=== PATIENT | female | born 1940 | race Caucasian/White ===

== ENCOUNTER 2019-09-19 11:29 | Outpatient (CLI) | payer MEDICARE ==
--- NOTE | 2019-09-19 16:51 | DEXA Report ---
Reason: MENOPAUSAL Procedure Date: 09/19/2019 Accession Number: [id number] / [id number] Procedure: DEX - Dexa Spine and/or Hip CPT Code: Final Report FULL RESULT: EXAM: Dexa Spine and/or Hip, Dexa Forearm DATE: 09/19/2019 12:11 PM CLINICAL HISTORY: The patient is an 79-year-old postmenopausal female. TECHNIQUE: Dual energy x-ray absorptiometry (DXA) was performed on a [employer] System. Regions measured are the AP Spine, femoral neck, and if needed forearm. COMPARISON: None. In accordance with the International Society for Clinical Densitometry (ISCD) guidelines, data from previous exams may be reanalyzed using current recommendations and techniques. This is done to allow a more accurate basis for comparison with the current study. FINDINGS: The data for the lumbar spine is as follows: BMD (g/cm/cm) T-SCORE Z-SCORE REGION L1 0.804 -2.7 -0.4 L2 1.039 -1.3 0.9 L3 1.292 0.8 3.0 L4 1.247 0.4 2.7 TOTAL 1.108 -1.0 1.3 NOTE: All evaluable vertebrae are used for classification The data for the hip is as follows: BMD (g/cm/cm) T-SCORE Z-SCORE REGION Neck 0.665 -2.7 -0.3 TOTAL 0.643 -2.9 -0.6 NOTE: The femoral neck or total proximal femur, whichever is lowest, is used for classification. The data for the left forearm is as follows: BMD (g/cm/cm) T-SCORE Z-SCORE REGION 1/3 0.409 -5.3 -2.8 NOTE: The 33% radius of the nondominant forearm is used for classification. IMPRESSION: THE WHO CLASSIFICATION BASED ON THE INTERNATIONAL REFERENCE STANDARD IS OSTEOPOROSIS. THE FRACTURE RISK IS HIGH. RECOMMENDATION: Patients with diagnosis of osteoporosis or osteopenia should have regular bone mineral density assessment. For those eligible for Medicare, routine testing is allowed once every 2 years. Testing frequency can be increased for patients who have rapidly progressing disease or for those who are receiving medical therapy to restore bone mass. COMMENT: World Health Organization (WHO) definitions for osteoporosis and osteopenia: NORMAL BMD: T-score at -1.0 or higher, fracture risk is low OSTEOPENIA BMD: T-score between -1.0 and -2.5, fracture risk is increased. OSTEOPOROSIS BMD: T-score at -2.5 or lower, fracture risk is high. National Osteoporosis Foundation recommends: 1. Obtain adequate dietary calcium (at least 1200 mg per day) and vitamin D (400-800 international units per day). 2. Participate, as appropriate, in regular weightbearing and muscle-strengthening exercise. 3. Avoid tobacco use and reduce alcohol and caffeine intake. 4. For more detailed information see the website at www.NOF.org.
== END 2019-09-19 11:30 | disposition home or self-care (01) ==
LOC: DI 11:29
PROVIDERS: ATTEND Registered Nurse
DX: M81.0 Age-related osteoporosis without current pathological fracture (principal)
CPT/HCPCS: 77080; 77081

== ENCOUNTER 2019-11-09 09:34 | Outpatient (CLI) | payer MEDICARE ==
[2019-11-09 18:26] LABS: BASOPHILS # (AUTO) 0.1 10^3/uL (0.0-0.1); EOSINOPHILS % (AUTO) 0.8 %; LYMPHOCYTES # (AUTO) 1.1 10^3/uL (1.5-3.5); MEAN CORPUSCULAR HEMOGLOBIN 32.8 pg (27.0-31.0); MEAN CORPUSCULAR HGB CONC 32.9 g/dL (32.0-36.0); MEAN CORPUSCULAR VOLUME 99.7 fL (81.0-99.0); MEAN PLATELET VOLUME 12.4 fL (7.9-10.8); MONOCYTES # (AUTO) 0.3 10^3/uL (0.0-1.0); MONOCYTES % (AUTO) 9.3 %; NEUTROPHILS % (AUTO) 57.9 %; PLT - PLATELET COUNT 178 10^3/uL (130-450); RED BLOOD COUNT 3.96 10^6/uL (4.20-5.40); RED CELL DISTRIBUTION WIDTH 13.2 % (12.0-15.0); WHITE BLOOD COUNT 3.5 x10^3/uL (4.8-10.8)
[2019-11-09 18:34] LABS: CALCIUM 9.4 mg/dL (8.5-10.3); CREATININE 0.6 mg/dL (0.4-1.0)
== END 2019-11-09 09:35 | disposition home or self-care (01) ==
LOC: LAB.S 09:34
PROVIDERS: ATTEND Registered Nurse
DX: K57.92 Diverticulitis of intestine, part unspecified, without perforation or abscess without bleeding (principal)
CPT/HCPCS: 36415; 80048; 85025; 85651

== ENCOUNTER 2019-12-13 12:23 | Outpatient (CLI) | payer MEDICARE ==
[2019-12-13 17:38] LABS: URIC ACID 4.1 mg/dL (2.6-7.2)
== END 2019-12-13 12:24 | disposition home or self-care (01) ==
LOC: LAB.S 12:23
PROVIDERS: ATTEND Registered Nurse
DX: M13.879 Other specified arthritis, unspecified ankle and foot (principal)
CPT/HCPCS: 36415; 83970; 84075; 84443; 84550

== ENCOUNTER 2020-04-01 10:30 | Outpatient (CLI) | payer MEDICARE | END 2020-04-01 23:59 | disposition home or self-care (01) | LOC: LAB.R 10:30 | PROVIDERS: ATTEND Registered Nurse | DX: N39.0 Urinary tract infection, site not specified (principal) | CPT/HCPCS: 87077; 87086; 87181 ==

== ENCOUNTER 2020-04-15 08:00 | Outpatient (CLI) | payer MEDICARE | END 2020-04-15 23:59 | LOC: LAB.S 08:00 | PROVIDERS: ATTEND Family Medicine | DX: R30.0 Dysuria (principal) | CPT/HCPCS: 81002 ==

== ENCOUNTER 2020-05-01 15:52 | Outpatient (CLI) | payer MEDICARE ==
--- NOTE | 2020-05-01 22:48 | Ultrasound Report ---
PROCEDURE: Retroperitoneal INDICATIONS: DYSURIA urinary frequency TECHNIQUE: Real-time scanning was performed of the retroperitoneal organs, with image documentation. COMPARISON: None. FINDINGS: Kidneys: Kidneys are normal in size. Right kidney measures 10.7 cm long; left kidney measures 11.4 cm long. Right renal cortical thickness is 0.9 cm; left renal cortical thickness is 1.5 cm. No ivonne d masses, hydronephrosis, or nephrolithiasis. There are 2 partially exophytic cyst arising in the mi d and upper pole of the right kidney. The larger measures 3.7 x 3.2 x 4.1 cm. The smaller measures 2. 7 x 1.7 x 2.2 cm. Both cysts demonstrate thin davies, no internal complexity, or color Doppler flow. Urinary bladder: The prevoid urinary bladder has a volume of 393 cc. Bilateral ureteral jets were vis ible. The bladder wall is not significantly thickened. No visible bladder mass or debris. The post vo id bladder residual is 141 cc. IMPRESSION: 1. Simple right renal cysts measuring 4.1 and 2.7 cm. 2. Large postvoid residual of 141 cc. 3. No evidence of hydronephrosis Reviewed by: Vida Johnston MD on 05/01/2020 10:47 PM PDT Approved by: Vida Johnston MD on 05/01/2020 10:47 PM PDT Station ID: [id number]
== END 2020-05-01 15:53 | disposition home or self-care (01) ==
LOC: DI 15:52
PROVIDERS: ATTEND Family Medicine
DX: Q61.02 Congenital multiple renal cysts (principal)
CPT/HCPCS: 76770

== ENCOUNTER 2020-05-08 08:00 | Outpatient (CLI) | payer MEDICARE | END 2020-05-08 08:01 | disposition home or self-care (01) | LOC: LAB.R 08:00 | PROVIDERS: ATTEND Family Medicine | DX: R33.9 Retention of urine, unspecified (principal); R35.0 Frequency of micturition | CPT/HCPCS: 87086 ==

== ENCOUNTER 2020-09-04 12:00 | Outpatient (CLI) | payer MEDICARE | END 2020-09-04 23:59 | disposition home or self-care (01) | LOC: LAB.R 12:00 | PROVIDERS: ATTEND Physician Assistant Medical | DX: N39.0 Urinary tract infection, site not specified (principal) | CPT/HCPCS: 87077; 87086; 87181 ==

== ENCOUNTER 2020-10-06 08:00 | Outpatient (CLI) | payer MEDICARE ==
--- NOTE | 2020-10-06 16:36 | XRAY Report ---
PROCEDURE: Ribs w/PA Chest LT INDICATIONS: RIB PAIN, LEFT SIDED TECHNIQUE: 2 views of the left ribs were acquired, along with a single view chest. COMPARISON: None FINDINGS: Surgical changes and devices: None. Bones and chest wall: No fractures or dislocations. No suspicious bony lesions. Overlying soft tis sues appear unremarkable. Lungs and pleura: No pleural effusions or pneumothorax. Lungs appear clear. Mediastinum: Mediastinal contours appear normal. Heart size is normal. IMPRESSION: No gross displaced left rib fracture. No acute cardiopulmonary pathology. Reviewed by: Orlando Mcdaniel MD on 10/06/2020 4:34 PM PST Approved by: Orlando Mcdaniel MD on 10/06/2020 4:34 PM PST Station ID: [id number]
== END 2020-10-06 23:59 ==
LOC: DI.S 08:00
PROVIDERS: ATTEND Physician Assistant
DX: R07.81 Pleurodynia (principal)

== ENCOUNTER 2020-12-19 08:00 | Outpatient (CLI) | payer MEDICARE | END 2020-12-19 23:59 | disposition home or self-care (01) | LOC: LAB.S 08:00 | PROVIDERS: ATTEND Physician Assistant Medical | DX: R35.0 Frequency of micturition (principal) | CPT/HCPCS: 87086 ==

== ENCOUNTER 2021-03-06 08:00 | Outpatient (CLI) | payer MEDICARE | END 2021-03-06 23:59 | disposition home or self-care (01) | LOC: LAB.S 08:00 | PROVIDERS: ATTEND Physician Assistant | DX: N39.0 Urinary tract infection, site not specified (principal) | CPT/HCPCS: 87077; 87086; 87181 ==

== ENCOUNTER 2021-04-21 08:00 | Outpatient (CLI) | payer MEDICARE | END 2021-04-21 23:59 | disposition home or self-care (01) | LOC: LAB.S 08:00 | PROVIDERS: ATTEND Physician Assistant | DX: N39.0 Urinary tract infection, site not specified (principal) | CPT/HCPCS: 87077; 87086; 87181 ==

== ENCOUNTER 2021-06-17 15:15 | Outpatient (CLI) | payer MEDICARE ==
[2021-06-17 20:07] LABS: BILIRUBIN,URINE NEGATIVE (NEGATIVE); GLUCOSE, URINE (UA) NEGATIVE (NEGATIVE); KETONES,URINE (UA) NEGATIVE (NEGATIVE); LEUKOCYTE ESTERASE, URINE SMALL (NEGATIVE); NITRITE,URINE NEGATIVE (NEGATIVE); OCCULT BLOOD,URINE NEGATIVE (NEGATIVE); PH,URINE 7.5 PH (5.0-7.5); PROTEIN,URINE NEGATIVE (NEGATIVE); UROBILINOGEN,URINE 0.2 (NORMAL) E.U./dL (NORMAL)
[2021-06-17 20:18] LABS: BACTERIA,URINE Rare /HPF (None Seen); CLARITY,URINE CLEAR (CLEAR); RBC,URINE 0-5 /HPF (0-5); SQUAMOUS EPITHELIAL CELL,UR FEW Squamous (<= Few); WBC,URINE 0-3 /HPF (0-5)
== END 2021-06-17 15:16 | disposition home or self-care (01) ==
LOC: LAB.S 15:15
PROVIDERS: ATTEND Urology
DX: R39.9 Unspecified symptoms and signs involving the genitourinary system (principal)
CPT/HCPCS: 81001; 81003; 87077; 87086; 87181

== ENCOUNTER 2021-07-05 12:40 | Outpatient (CLI) | payer MEDICARE ==
[2021-07-05 20:03] LABS: BILIRUBIN,URINE NEGATIVE (NEGATIVE); GLUCOSE, URINE (UA) NEGATIVE (NEGATIVE); KETONES,URINE (UA) NEGATIVE (NEGATIVE); LEUKOCYTE ESTERASE, URINE SMALL (NEGATIVE); NITRITE,URINE NEGATIVE (NEGATIVE); OCCULT BLOOD,URINE NEGATIVE (NEGATIVE); PROTEIN,URINE NEGATIVE (NEGATIVE); UROBILINOGEN,URINE 0.2 (NORMAL) E.U./dL (NORMAL)
[2021-07-05 20:06] LABS: CLARITY,URINE CLEAR (CLEAR)
[2021-07-05 20:25] LABS: BACTERIA,URINE Moderate /HPF (None Seen); RBC,URINE 0-5 /HPF (0-5); SQUAMOUS EPITHELIAL CELL,UR NONE SEEN (<= Few)
== END 2021-07-05 23:59 | disposition home or self-care (01) ==
LOC: LAB.S 12:40
PROVIDERS: ATTEND Emergency Medicine
DX: R30.0 Dysuria (principal)
CPT/HCPCS: 81001; 87077; 87086

== ENCOUNTER 2021-07-27 10:10 | Outpatient (CLI) | payer MEDICARE | END 2021-07-27 23:59 | disposition home or self-care (01) | LOC: LAB.S 10:10 | PROVIDERS: ATTEND Physician Assistant Medical | DX: R30.0 Dysuria (principal) | CPT/HCPCS: 87086 ==

== ENCOUNTER 2021-09-04 13:02 | Outpatient (CLI) | payer MEDICARE ==
--- NOTE | 2021-09-04 16:45 | Ultrasound Report ---
PROCEDURE: Retroperitoneal INDICATIONS: VAGINAL DISCOMFORT, HIST RECURRENT UTIS TECHNIQUE: Real-time scanning was performed of the retroperitoneal organs, with image documentation. COMPARISON: None. FINDINGS: Kidneys: Kidneys are normal in size. Right kidney measures 10.4 cm long; left kidney measures 11.4 cm long. Right renal cortical thickness is 1.1 cm; left renal cortical thickness is 1.4 cm. No ivonne d masses, hydronephrosis, or nephrolithiasis. Prevoid urinary bladder volume: 187 cc. Post void residual: 39 cc. IMPRESSION: No hydronephrosis. Reviewed by: Sona Salinas MD on 09/04/2021 4:44 PM PST Approved by: Sona Salinas MD on 09/04/2021 4:44 PM PST Station ID: [id number]
--- NOTE | 2021-09-04 16:53 | Ultrasound Report ---
PROCEDURE: Pelvic w/Transvaginal INDICATIONS: VAGINAL DISCOMFORT, HIST RECURRENT UTIs TECHNIQUE: Real-time scanning was performed of the pelvic organs, with image documentation. Additional endovagi nal scanning was necessary due to incomplete visualization of the adnexal and endometrial structures by transabdominal scanning. COMPARISON: Same day renal ultrasound. FINDINGS: No pathologic free abdominal or pelvic fluid. Uterus: Surgically absent. Vaginal cuff is unremarkable. Ovaries: Ovaries are not seen. IMPRESSION: Post hysterectomy. Ovaries are not seen. No free fluid. Reviewed by: Jose Eduardo Collier MD on 09/04/2021 4:51 PM PST Approved by: Jose Eduardo Collier MD on 09/04/2021 4:51 PM PST Station ID: [id number]
== END 2021-09-04 13:03 | disposition home or self-care (01) ==
LOC: DI 13:02
PROVIDERS: ATTEND Physician Assistant Medical
DX: N94.9 Unspecified condition associated with female genital organs and menstrual cycle (principal); Z90.710 Acquired absence of both cervix and uterus

== ENCOUNTER 2021-11-03 09:18 | Outpatient (CLI) | payer MEDICARE ==
--- NOTE | 2021-11-03 15:48 | XRAY Report ---
PROCEDURE: Lumbar Spine 2 View INDICATIONS: LOW BACK PAIN TECHNIQUE: 3 views of the lumbar spine were acquired. COMPARISON: None. FINDINGS: Bones: 5 [id number] vertebrae are present. There is moderate leftward curvature of the mid/ upper lumbar spine. Multilevel disc space narrowing and endplate osteophyte formation throughout the lumbar spine. Facet hypertrophy throughout the lumbar spine. Mild grade 1 anterolisthesis of L4 on L5 . No vertebral body compression fractures. No suspicious bony lesions. Soft tissues: Overlying bowel gas pattern is normal. No suspicious soft tissue calcifications. IMPRESSION: Multilevel degenerative disc and facet disease. No acute fracture. No osseous lesion. If symptoms and/or clinical suspicion for pathology continue, further assessment with repeat plain film s, or advanced imaging (e.g., CT, MRI, or bone scan) is recommended for further assessment. Reviewed by: Sona Salinas MD on 11/03/2021 3:47 PM PST Approved by: Snoa Salinas MD on 11/03/2021 3:47 PM PST Station ID: [id number]
== END 2021-11-03 09:19 | disposition home or self-care (01) ==
LOC: DI.S 09:18
PROVIDERS: ATTEND Family Medicine
DX: M43.16 Spondylolisthesis, lumbar region (principal); M47.816 Spondylosis without myelopathy or radiculopathy, lumbar region; M51.36 Other intervertebral disc degeneration, lumbar region

== ENCOUNTER 2022-05-09 08:00 | Outpatient (CLI) | payer MEDICARE, BC ==
--- NOTE | 2022-05-12 16:05 | XRAY Report ---
PROCEDURE: Hand 3 View RT INDICATIONS: PAIN IN RIGHT HAND TECHNIQUE: 3 views of the hand(s) acquired. COMPARISON: None. FINDINGS: Bones: There is generalized osteopenia. Posterior changes are seen from transmetatarsal amputation o f the fifth ray. A minimally displaced oblique fracture is seen at the fourth metacarpal shaft. No de finite intra-articular extension is seen. Mild to moderate scattered degenerative changes are seen th at are most prominent at the first carpometacarpal joint. No suspicious bony lesions. Soft tissues: Cartilage calcifications are seen in the region of the triangular fibrocartilage, consi stent with chondrocalcinosis. IMPRESSION: 1.Minimally displaced oblique fracture of the fourth metacarpal shaft. 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 3.Mild to moderate background degenerative changes. 4.Chondrocalcinosis. Reviewed by: Ernesto Jeter MD on 05/12/2022 4:04 PM PDT Approved by: Ernesto Jeter MD on 05/12/2022 4:04 PM PDT Station ID: [id number]
== END 2022-05-09 23:59 | disposition home or self-care (01) ==
LOC: DI.S 08:00
PROVIDERS: ATTEND Registered Nurse
DX: Z89.021 Acquired absence of right finger(s) (principal); S62.324A Displaced fracture of shaft of fourth metacarpal bone, right hand, initial encounter for closed fracture; M19.041 Primary osteoarthritis, right hand

== ENCOUNTER 2022-06-24 10:20 | Outpatient (CLI) | payer MEDICARE, BC ==
[2022-06-24 15:38] LABS: BASOPHILS # (AUTO) 0.1 10^3/uL (0.0-0.1); BASOPHILS % (AUTO) 2.1 %; EOSINOPHILS # (AUTO) 0.1 10^3/uL (0.0-0.7); HGB - HEMOGLOBIN 13.4 g/dL (12.0-16.0); LYMPHOCYTES # (AUTO) 0.9 10^3/uL (1.5-3.5); LYMPHOCYTES % (AUTO) 27.4 %; MEAN CORPUSCULAR HEMOGLOBIN 32.4 pg (27.0-31.0); MEAN CORPUSCULAR HGB CONC 32.7 g/dL (32.0-36.0); MONOCYTES # (AUTO) 0.3 10^3/uL (0.0-1.0); MONOCYTES % (AUTO) 10.1 %; NEUTROPHILS # (AUTO) 1.9 10^3/uL (1.5-6.6); NEUTROPHILS % (AUTO) 57.1 %; PLT - PLATELET COUNT 178 10^3/uL (130-450); RED BLOOD COUNT 4.14 10^6/uL (4.20-5.40); RED CELL DISTRIBUTION WIDTH 13.5 % (12.0-15.0); WHITE BLOOD COUNT 3.4 x10^3/uL (4.8-10.8)
[2022-06-24 16:53] LABS: THYROID STIMULATING HORMONE 1.48 uIU/mL (0.34-5.60)
[2022-06-24 17:17] LABS: ALBUMIN 3.5 g/dL (3.2-5.5); ALBUMIN/GLOBULIN RATIO 1.5 (1.0-2.2); BILIRUBIN,TOTAL 1.1 mg/dL (0.2-1.0); CALCIUM 9.3 mg/dL (8.5-10.3); CREATININE 0.6 mg/dL (0.4-1.0); POTASSIUM 3.6 mmol/L (3.5-5.0); TOTAL PROTEIN 5.9 g/dL (6.7-8.2)
== END 2022-06-24 10:21 | disposition home or self-care (01) ==
LOC: LAB.S 10:20
PROVIDERS: ATTEND Hospitalist
DX: R53.83 Other fatigue (principal); R25.2 Cramp and spasm
CPT/HCPCS: 36415; 80053; 82306; 82607; 84443; 85025

== ENCOUNTER 2022-07-09 08:00 | Outpatient (CLI) | payer MEDICARE, BC ==
--- NOTE | 2022-07-09 18:36 | XRAY Report ---
PROCEDURE: Hand 3 View RT INDICATIONS: 4TH MC FRACTURE RIGHT TECHNIQUE: 3 views of the hand(s) acquired. COMPARISON: 06/09/2022 FINDINGS: Bones: Stable postsurgical changes of remote amputation of the fifth finger at the level of the proxi mal fifth metacarpal. Redemonstration of oblique fracture involving the fourth metacarpal with contin ued decrease in fracture line conspicuity. Periosteal reaction at the fracture site is noted. Stable background polyarticular degenerative changes of the right wrist and hand. No acute fractures seen. No suspicious bony lesions. Soft tissues: No suspicious soft tissue calcifications. IMPRESSION: Continued radiographic evidence for progress towards healing of right fourth metacarpal fracture in s table alignment. Reviewed by: Forrest Merino MD on 07/09/2022 6:35 PM PDT Approved by: Forrest Merino MD on 07/09/2022 6:35 PM PDT Station ID: [id number]
== END 2022-07-09 23:59 | disposition home or self-care (01) ==
LOC: DI.WOS 08:00
PROVIDERS: ATTEND Physician Assistant Surgical
DX: S62.354D Nondisplaced fracture of shaft of fourth metacarpal bone, right hand, subsequent encounter for fracture with routine healing (principal)

== ENCOUNTER 2022-08-29 09:38 | Emergency (ER) | payer MEDICARE, OTHER ==
[2022-08-29 10:15] VITALS: BP 149/86
--- NOTE | 2022-08-29 10:49 | XRAY Report ---
PROCEDURE: Shoulder 3 View LT INDICATIONS: injury/pain to shoulder TECHNIQUE: 3 views of the shoulder were acquired. COMPARISON: None. FINDINGS: Bones: No fractures or dislocations. No suspicious bony lesions. Visualized ribs appear intact. D egenerative changes are seen, with moderate luminal disc space narrowing, with associated osteophyte formation along the inferomedial humeral head. Soft tissues: No suspicious soft tissue calcifications. The visualized lung demonstrates a normal a ppearance. Calcification is seen of the aortic arch. IMPRESSION: No srini, acute plain film abnormality is seen. There are degenerative changes seen. If it would be helpful for clinical management decision making, please consider a dedicated, schedule d shoulder MRI for further evaluation (assuming that there is no contraindication). Reviewed by: Temo South MD on 08/29/2022 9:47 AM [facility] Approved by: Temo South MD on 08/29/2022 9:47 AM [facility] Station ID: [id number]
[2022-08-29] MEDS ORDERED: LIDOCAINE PATCH 5% TOP STA (11:17)
--- NOTE | 2022-08-29 11:22 | ED Physician Documentation ---
PD HPI UPPER EXT INJURY - Stated complaint Stated Complaint: L SHOULDER PX - Chief complaint Chief Complaint: Ext Problem - History obtained from History obtained from: Patient - Additonal information Additional information: Pt is a 82 yo F presenting for evaluation of L shoulder pain x 1 day. She reports intermittent issues with her L shoulder where "it goes out" and she has pain with ROM. Triage note states she bumped shoulder into door but she denies trauma or injury to me. She states it only hurts when she is sleeping and trying to lay on it but that it does not cause her too much pain when walking. She denies pain elsewhere. Review of Systems Constitutional: denies: Fever Cardiac: denies: Chest pain / pressure Respiratory: denies: Dyspnea GI: denies: Abdominal Pain Musculoskeletal: reports: Extremity pain, Joint pain Neurologic: denies: Focal weakness PD PAST MEDICAL HISTORY - Past Medical History Past Medical History: No - Past Surgical History General: Other /[employer]: Hysterectomy - Present Medications Home Medications: Ambulatory Orders Medication Instructions Recorded Confirmed Lidocaine Patch 5% [Lidoderm Patch] 1 patch TOP DAILY PRN #10 patch 08/29/22 - Allergies Allergies/Adverse Reactions: Allergies Allergy/AdvReac Type Severity Reaction Status Date / Time No Known Drug Allergies Allergy Verified 08/29/22 10:13 - Social History Does the pt smoke?: No Smoking Status: Never smoker Does the pt drink ETOH?: Yes ETOH Use: Beer Does the pt have substance abuse?: No - Immunizations Immunizations are current?: Yes - POLST Patient has POLST: No PD ED PE NORMAL - General General: Alert and oriented X 3, No acute distress, Well developed/nourished - HEENT HEENT: Atraumatic - Neck Neck: No bony TTP - Cardiac Cardiac: RRR, Strong equal pulses - Respiratory Respiratory: No respiratory distress, Clear bilaterally - Derm Derm: Warm and dry - Extremities Extremities: No deformity. No: No tenderness to palpate (L anterior shoulder tenderness to palpation, able to touch R shoulder with L hand; pain with abduction and extension) - Neuro Neuro: No motor deficit, No sensory deficit Results - Vitals Vitals: Vital Signs - 24 hr 08/29/22 10:14 Temperature 37.2 C Heart Rate 57 L Respiratory 19 Rate Blood Pressure 149/86 H O2 Saturation 97 Oxygen O2 Source Room air PD MEDICAL DECISION MAKING - ED course Complexity details: re-evaluated patient ED course: Pt with L shoulder pain. No deformities noted on exam. Xray negative for fracture or dislocation. Neurovascularly intact. Pt offered sling (with advice to remove it often to ROM shoulder) and continued supportive care. Recommend close outpatient follow up if pain is not improving. Pt advised on concerning symptoms to return for. Departure - Departure Disposition: 01 Home, Self Care Clinical Impression: Left shoulder pain Qualifiers: Chronicity: acute Qualified Code(s): M25.512 - Pain in left shoulder Condition: Stable Instructions: ED Shoulder Pain [facility] Prescriptions: Lidocaine Patch 5% [Lidoderm Patch] 1 patch TOP DAILY PRN #10 patch PRN Reason: pain Comments: You have been seen for pain to your left shoulder. Your x-ray does not show a broken or out of place bone. However you could have another injury which we are not able to detect on the x-ray. I have given a prescription for lidocaine patches and sent this to [facility] in [place]. I have also given you a sling to use as needed for comfort. I would recommend keeping your arm out of the sling is much as you can tolerate and making sure you are moving it around to prevent it from becoming frozen. I would recommend close follow-up with your primary care doctor as it does appear that you have some chronicity to your shoulder pain. Discharge Date/Time: 08/29/22 11:29
== END 2022-08-29 11:29 | disposition home or self-care (01) ==
LOC: ED 09:38
DX: M25.512 Pain in left shoulder (principal)
CPT/HCPCS: 73030; 99283; 99284; A9270

== ENCOUNTER 2022-12-10 12:24 | Outpatient (CLI) | payer MEDICARE, OTHER ==
[2022-12-10 19:46] LABS: BASOPHILS # (AUTO) 0.1 10^3/uL (0.0-0.1); BASOPHILS % (AUTO) 1.2 %; EOSINOPHILS # (AUTO) 0.1 10^3/uL (0.0-0.7); EOSINOPHILS % (AUTO) 2.3 %; HCT - HEMATOCRIT 43.1 % (37.0-47.0); HGB - HEMOGLOBIN 13.5 g/dL (12.0-16.0); LYMPHOCYTES % (AUTO) 18.3 %; MEAN CORPUSCULAR HEMOGLOBIN 31.9 pg (27.0-31.0); MEAN CORPUSCULAR HGB CONC 31.3 g/dL (32.0-36.0); MEAN CORPUSCULAR VOLUME 101.9 fL (81.0-99.0); MEAN PLATELET VOLUME 12.1 fL (7.9-10.8); MONOCYTES # (AUTO) 0.6 10^3/uL (0.0-1.0); MONOCYTES % (AUTO) 11.3 %; NEUTROPHILS # (AUTO) 3.5 10^3/uL (1.5-6.6); NEUTROPHILS % (AUTO) 66.7 %; PLT - PLATELET COUNT 149 10^3/uL (130-450); RED BLOOD COUNT 4.23 10^6/uL (4.20-5.40); RED CELL DISTRIBUTION WIDTH 13.9 % (12.0-15.0); WHITE BLOOD COUNT 5.2 x10^3/uL (4.8-10.8)
[2022-12-10 20:07] LABS: ALBUMIN 3.6 g/dL (3.2-5.5); ALBUMIN/GLOBULIN RATIO 1.2 (1.0-2.2); ALKALINE PHOSPHATASE 53 IU/L (42-121); ALT ALANINE AMINOTRANSFERASE 22 IU/L (10-60); AST ASPARTATE AMINOTRANSFERASE 33 IU/L (10-42); BILIRUBIN,TOTAL 1.2 mg/dL (0.2-1.0); BUN - BLOOD UREA NITROGEN 12 mg/dL (6-20); CALCIUM 9.5 mg/dL (8.5-10.3); CARBON DIOXIDE - CO2 28 mmol/L (21-32); CHLORIDE 106 mmol/L (101-111); CREATININE 0.5 mg/dL (0.4-1.0); GFR - MDRD 118 (>89); GLUCOSE 104 mg/dL (70-100); POTASSIUM 4.2 mmol/L (3.5-5.0); SODIUM 142 mmol/L (135-145); TOTAL PROTEIN 6.5 g/dL (6.7-8.2)
[2022-12-10 20:08] LABS: CRP - C-REACTIVE PROTEIN < 1.0 mg/dL (0-1.0)
[2022-12-10 20:23] LABS: THYROID STIMULATING HORMONE 1.08 uIU/mL (0.34-5.60)
== END 2022-12-10 12:25 | disposition home or self-care (01) ==
LOC: LAB.S 12:24
PROVIDERS: ATTEND Registered Nurse
DX: I88.9 Nonspecific lymphadenitis, unspecified (principal); R22.1 Localized swelling, mass and lump, neck
CPT/HCPCS: 36415; 80053; 84443; 85025; 85651; 86140

== ENCOUNTER 2022-12-13 11:40 | Outpatient (CLI) | payer MEDICARE, OTHER ==
--- NOTE | 2022-12-13 13:23 | Ultrasound Report ---
PROCEDURE: Head or Neck Soft Tissue INDICATIONS: THROAT SWELLING, CERVICAL LYMPHADENITIS TECHNIQUE: Real time scanning was performed of the neck region of interest, with image documentation . COMPARISON: None. FINDINGS: The patient describes submandibular swelling x5 days. The submandibular region was interrog ated with a high megahertz linear transducer with and without duplex. The submandibular glands bilate rally are somewhat prominent and of relatively prominent vascularity. No focal suspicious mass. No ab scess. No stone identified. Imaging of the thyroid region was also performed, unremarkable. The thyroid is homogeneous in its ech o pattern. Right lobe measures 4.6 x 1.1 x 1.5 cm. Left lobe measures 2.9 x 0.6 x 1.0 cm. IMPRESSION: 1. In the region of patient's complaints, there is no worrisome mass or abscess. The submandibular gl ands are prominent and possibly of increased vascularity. This can represent some degree of inflammat ion of the submandibular glands. Reviewed by: Faustino Stephen MD on 12/13/2022 1:22 PM PST Approved by: Faustino Stephen MD on 12/13/2022 1:22 PM PST Station ID: [id number]
== END 2022-12-13 11:41 | disposition home or self-care (01) ==
LOC: DI 11:40
PROVIDERS: ATTEND Registered Nurse
DX: R22.1 Localized swelling, mass and lump, neck (principal); L04.8 Acute lymphadenitis of other sites

== ENCOUNTER 2022-12-23 14:29 | Outpatient (CLI) | payer MEDICARE, OTHER ==
[2022-12-23] MEDS ORDERED: iohexoL-300 100 ML VIAL ONE (14:36)
[2022-12-23] MEDS ORDERED: iohexoL-300 100 ML VIAL IVP ONE (15:16)
--- NOTE | 2022-12-23 16:38 | CT Report ---
PROCEDURE: SOFT TISSUE NECK W INDICATIONS: SOFT TISSUE SWELLING CONTRAST: 100ml Omnipaque 300 TECHNIQUE: After the administration of intravenous contrast, 3.0 mm axial sections acquired from the sella to th e aortic arch. Additional oblique axial 3.0 mm sections acquired through the pharynx. 3 mm thick co jack reformats were generated. For radiation dose reduction, the following was used: automated exp osure control, adjustment of mA and/or kV according to patient size. COMPARISON: Ultrasound dated 12/13/2022. FINDINGS: Image quality: Excellent. Lymph nodes: No enlarged lymph nodes seen throughout the neck. Vessels: Visualized vasculature appears patent. Neck spaces: The oropharynx, nasopharynx, and pharynx demonstrate no mucosal lesions. The vocal cor ds, false vocal cords, pyriform sinuses, epiglottis, vallecula, and tongue base all appear normal. E xtramucosal spaces appear unremarkable. Glands: The parotid and submandibular glands appear normal. The thyroid is normal in size and there are no incidental findings. Miscellaneous: Visualized brain and orbits appear normal. Lung apices appear clear. Superficial so ft tissues appear normal. Bones: No suspicious bony lesions. Left maxillary sinus retention cyst. IMPRESSION: No explanation for neck swelling. Reviewed by: Sona Salinas MD on 12/23/2022 4:37 PM PST Approved by: Sona Salinas MD on 12/23/2022 4:37 PM PST Station ID: [id number]
== END 2022-12-23 14:30 | disposition home or self-care (01) ==
LOC: DI 14:29
PROVIDERS: ATTEND Physician Assistant Medical
DX: K11.21 Acute sialoadenitis (principal); B96.89 Other specified bacterial agents as the cause of diseases classified elsewhere; I88.9 Nonspecific lymphadenitis, unspecified
CPT/HCPCS: 70491; Q9967

== ENCOUNTER 2022-12-25 15:52 | Outpatient (CLI) | payer MEDICARE, OTHER | END 2022-12-25 15:53 | disposition short-term general hospital (02) | LOC: EMS 15:52 | DX: R47.01 Aphasia (principal); H54.61 Unqualified visual loss, right eye, normal vision left eye; R51.9 Headache, unspecified | CPT/HCPCS: A0425; A0429 ==

== ENCOUNTER 2023-02-15 13:12 | Outpatient (CLI) | payer MEDICARE, OTHER ==
[2023-02-15 20:11] LABS: ALBUMIN 3.5 g/dL (3.2-5.5); ALBUMIN/GLOBULIN RATIO 1.5 (1.0-2.2); ALKALINE PHOSPHATASE 57 IU/L (42-121); ALT ALANINE AMINOTRANSFERASE 29 IU/L (10-60); AST ASPARTATE AMINOTRANSFERASE 29 IU/L (10-42); BILIRUBIN,TOTAL 0.9 mg/dL (0.2-1.0); BUN - BLOOD UREA NITROGEN 12 mg/dL (6-20); CALCIUM 9.3 mg/dL (8.5-10.3); CARBON DIOXIDE - CO2 30 mmol/L (21-32); CHLORIDE 105 mmol/L (101-111); CHOL/HDL RATIO 2.1 (<4.4); CHOLESTEROL 124 mg/dL; CREATININE 0.4 mg/dL (0.4-1.0); GFR - MDRD 153 (>89); GLUCOSE 96 mg/dL (70-100); HDL CHOLESTEROL 59 mg/dL; POTASSIUM 4.1 mmol/L (3.5-5.0); SODIUM 142 mmol/L (135-145); TOTAL PROTEIN 5.8 g/dL (6.7-8.2); TRIGLYCERIDES 33 mg/dL
== END 2023-02-15 13:13 | disposition home or self-care (01) ==
LOC: LAB.S 13:12
PROVIDERS: ATTEND Internal Medicine Clinical Cardiac Electrophysiology
DX: I67.2 Cerebral atherosclerosis (principal); E87.6 Hypokalemia
CPT/HCPCS: 36415; 80053; 80061; 83721

== ENCOUNTER 2023-03-07 12:52 | Outpatient (CLI) | payer MEDICARE, OTHER ==
[2023-03-07 19:46] LABS: BASOPHILS # (AUTO) 0.1 10^3/uL (0.0-0.1); BASOPHILS % (AUTO) 1.5 %; EOSINOPHILS # (AUTO) 0.1 10^3/uL (0.0-0.7); EOSINOPHILS % (AUTO) 1.2 %; HCT - HEMATOCRIT 40.2 % (37.0-47.0); HGB - HEMOGLOBIN 13.1 g/dL (12.0-16.0); LYMPHOCYTES # (AUTO) 1.2 10^3/uL (1.5-3.5); LYMPHOCYTES % (AUTO) 28.8 %; MEAN CORPUSCULAR HEMOGLOBIN 32.7 pg (27.0-31.0); MEAN CORPUSCULAR HGB CONC 32.6 g/dL (32.0-36.0); MEAN CORPUSCULAR VOLUME 100.2 fL (81.0-99.0); MEAN PLATELET VOLUME 12.1 fL (7.9-10.8); MONOCYTES # (AUTO) 0.4 10^3/uL (0.0-1.0); MONOCYTES % (AUTO) 9.5 %; NEUTROPHILS # (AUTO) 2.4 10^3/uL (1.5-6.6); NEUTROPHILS % (AUTO) 58.8 %; PLT - PLATELET COUNT 153 10^3/uL (130-450); RED BLOOD COUNT 4.01 10^6/uL (4.20-5.40); RED CELL DISTRIBUTION WIDTH 13.2 % (12.0-15.0); WHITE BLOOD COUNT 4.1 x10^3/uL (4.8-10.8)
[2023-03-07 20:01] LABS: % IRON SATURATION 34 % (20-50); IRON 106 ug/dL (28-170); TOTAL IRON BINDING CAPACITY 309 ug/dL (250-450); TRANSFERRIN 221 mg/dL (192-382)
[2023-03-07 20:15] LABS: FERRITIN 16.7 ng/mL (11.0-306.8)
[2023-03-10 18:07] LABS: ANTINUCLEAR ANTIBODIES IFA Negative (.)
== END 2023-03-07 12:53 | disposition home or self-care (01) ==
LOC: LAB.S 12:52
PROVIDERS: ATTEND Internal Medicine
DX: D75.89 Other specified diseases of blood and blood-forming organs (principal); R47.89 Other speech disturbances; K11.1 Hypertrophy of salivary gland; M12.9 Arthropathy, unspecified
CPT/HCPCS: 36415; 82607; 82728; 83540; 84466; 85025; 86038

== ENCOUNTER 2023-03-18 11:29 | Outpatient (CLI) | payer MEDICARE, OTHER ==
[2023-03-18 15:42] LABS: ALBUMIN 3.6 g/dL (3.2-5.5); ALBUMIN/GLOBULIN RATIO 1.3 (1.0-2.2); BILIRUBIN,TOTAL 0.8 mg/dL (0.2-1.0); CREATININE 0.5 mg/dL (0.4-1.0); POTASSIUM 4.1 mmol/L (3.5-5.0); TOTAL PROTEIN 6.4 g/dL (6.7-8.2)
== END 2023-03-18 11:30 | disposition home or self-care (01) ==
LOC: LAB.S 11:29
PROVIDERS: ATTEND Internal Medicine
DX: G45.9 Transient cerebral ischemic attack, unspecified (principal); E87.6 Hypokalemia
CPT/HCPCS: 36415; 80053

== ENCOUNTER 2023-04-08 12:55 | Outpatient (CLI) | payer MEDICARE, OTHER ==
--- NOTE | 2023-04-08 13:47 | XRAY Report ---
PROCEDURE: Knee 2 View LT INDICATIONS: MACROCYTOSIS TECHNIQUE: 2 views of the left knee(s) were acquired. COMPARISON: None. FINDINGS: Bones: No fractures or dislocations. Irregular lucency and sclerosis of the distal femur. Departmental joint space narrowing with osteophytosis. Soft tissues: No knee joint effusion. No suspicious soft tissue calcifications or masses. IMPRESSION: Mild irregular lucency and sclerosis of the distal femur, which may indicate avascular necrosis. Mild tricompartmental osteoarthritis. Kellgren-Tyler scale of osteoarthritis: 2. Reviewed by: Marcial Mahmood on 04/08/2023 1:46 PM PDT Approved by: Marcial Mahmood on 04/08/2023 1:46 PM PDT Station ID: [id number]
[2023-04-08 14:47] LABS: BASOPHILS # (AUTO) 0.1 10^3/uL (0.0-0.1); EOSINOPHILS # (AUTO) 0.1 10^3/uL (0.0-0.7); EOSINOPHILS % (AUTO) 1.6 %; HCT - HEMATOCRIT 37.4 % (37.0-47.0); HGB - HEMOGLOBIN 12.5 g/dL (12.0-16.0); LYMPHOCYTES # (AUTO) 1.2 10^3/uL (1.5-3.5); LYMPHOCYTES % (AUTO) 24.4 %; MEAN CORPUSCULAR HEMOGLOBIN 32.6 pg (27.0-31.0); MEAN CORPUSCULAR HGB CONC 33.4 g/dL (32.0-36.0); MEAN CORPUSCULAR VOLUME 97.4 fL (81.0-99.0); MEAN PLATELET VOLUME 11.6 fL (7.9-10.8); MONOCYTES # (AUTO) 0.5 10^3/uL (0.0-1.0); MONOCYTES % (AUTO) 9.5 %; NEUTROPHILS # (AUTO) 3.1 10^3/uL (1.5-6.6); NEUTROPHILS % (AUTO) 63.3 %; PLT - PLATELET COUNT 189 10^3/uL (130-450); RED BLOOD COUNT 3.84 10^6/uL (4.20-5.40); RED CELL DISTRIBUTION WIDTH 13.3 % (12.0-15.0)
[2023-04-08 15:16] LABS: ALBUMIN 3.4 g/dL (3.2-5.5); ALBUMIN/GLOBULIN RATIO 1.2 (1.0-2.2); CALCIUM 9.6 mg/dL (8.5-10.3); CREATININE 0.5 mg/dL (0.4-1.0); POTASSIUM 3.6 mmol/L (3.5-5.0); TOTAL PROTEIN 6.2 g/dL (6.7-8.2)
== END 2023-04-08 12:56 | disposition home or self-care (01) ==
LOC: DI.S 12:55
PROVIDERS: ATTEND Internal Medicine
DX: M17.12 Unilateral primary osteoarthritis, left knee (principal); D75.89 Other specified diseases of blood and blood-forming organs; R53.83 Other fatigue; R68.2 Dry mouth, unspecified
CPT/HCPCS: 36415; 80053; 82728; 85025

== ENCOUNTER 2023-05-17 14:28 | Outpatient (CLI) | payer MEDICARE, OTHER ==
--- NOTE | 2023-05-17 16:59 | XRAY Report ---
PROCEDURE: Knee 3 View LT INDICATIONS: KNEE JOINT PAIN, LEFT TECHNIQUE: 3 views of the left knee(s) were acquired. COMPARISON: None. FINDINGS: Bones: No fractures or dislocations. No suspicious bony lesions. Mild tricompartment periareolar osteophyte formation is present. Soft tissues: No knee joint effusion. No suspicious soft tissue calcifications or masses. There is calcification within the medial and lateral compartments. IMPRESSION: 1. Osteoarthritis. 2. Chondrocalcinosis. 3. No acute fracture. No osseous lesion. If symptoms and/or clinical suspicion for pathology continue , further assessment with repeat plain films, or advanced imaging (e.g., CT, MRI, or bone scan) is re commended for further assessment. Reviewed by: Sona Salinas MD on 05/17/2023 4:58 PM PDT Approved by: Sona Salinas MD on 05/17/2023 4:58 PM PDT Station ID: [id number]
== END 2023-05-17 14:29 | disposition home or self-care (01) ==
LOC: DI.S 14:28
PROVIDERS: ATTEND Orthopaedic Surgery
DX: M17.12 Unilateral primary osteoarthritis, left knee (principal); M11.262 Other chondrocalcinosis, left knee

== ENCOUNTER 2023-06-24 07:00 | Outpatient (CLI) | payer MEDICARE, OTHER ==
--- NOTE | 2023-06-24 12:18 | XRAY Report ---
PROCEDURE: Shoulder 3 View LT INDICATIONS: LEFT SHOULDER PAIN TECHNIQUE: 4 views of the shoulder were acquired. COMPARISON: 08/29/2022 FINDINGS: Bones: No fractures or dislocations. No suspicious bony lesions. Visualized ribs appear intact. Gl enoid humeral joint space narrowing with subchondral sclerosis and inferior marginal osteophyte Soft tissues: No suspicious soft tissue calcifications. The visualized lungs are within normal limi ts. Atherosclerotic vascular calcification noted in the aortic arch. IMPRESSION: Moderate to severe glenohumeral osteoarthritis Reviewed by: Ryan Perkins MD on 06/24/2023 11:16 AM [facility] Approved by: Ryan Perkins MD on 06/24/2023 11:16 AM [facility] Station ID: [id number]
== END 2023-06-24 23:59 | disposition home or self-care (01) ==
LOC: DI.S 07:00
PROVIDERS: ATTEND Physician Assistant
DX: M19.012 Primary osteoarthritis, left shoulder (principal)

== ENCOUNTER 2023-08-31 08:00 | Outpatient (CLI) | payer MEDICARE, OTHER ==
--- NOTE | 2023-08-31 12:44 | XRAY Report ---
PROCEDURE: Foot 3 View RT INDICATIONS: SPRAIN OF RIGHT FOOT TECHNIQUE: 3 views of the foot were acquired. COMPARISON: None. FINDINGS: Bones: No fractures or dislocations. Mild hallux valgus configuration of the first MTP with mild lila nt degeneration and medial bunion formation. Diffusely decreased osseous correlation. Degenerative ch anges of interphalangeal joints. No suspicious bony lesions. Soft tissues: No suspicious soft tissue calcifications or masses. IMPRESSION: No acute bony abnormality. If pain persists with conservative management, consider repeat x-ray in 10 -14 days or cross-sectional imaging. Reviewed by: Timmy Shine MD on 08/31/2023 12:42 PM PST Approved by: Timmy Shine MD on 08/31/2023 12:42 PM PST Station ID: [id number]
== END 2023-08-31 23:59 | disposition home or self-care (01) ==
LOC: DI.S 08:00
PROVIDERS: ATTEND Physician Assistant Medical
DX: S93.691A Other sprain of right foot, initial encounter (principal); R53.83 Other fatigue; R53.81 Other malaise; E03.9 Hypothyroidism, unspecified
CPT/HCPCS: 36415; 80053; 84443; 85025

== ENCOUNTER 2023-08-31 11:44 | Outpatient (CLI) | payer MEDICARE, OTHER ==
[2023-08-31 15:11] LABS: BASOPHILS # (AUTO) 0.1 10^3/uL (0.0-0.1); BASOPHILS % (AUTO) 1.2 %; EOSINOPHILS # (AUTO) 0.1 10^3/uL (0.0-0.7); EOSINOPHILS % (AUTO) 1.2 %; HCT - HEMATOCRIT 39.6 % (37.0-47.0); HGB - HEMOGLOBIN 12.8 g/dL (12.0-16.0); LYMPHOCYTES # (AUTO) 1.2 10^3/uL (1.5-3.5); LYMPHOCYTES % (AUTO) 28.3 %; MEAN CORPUSCULAR HEMOGLOBIN 32.2 pg (27.0-31.0); MEAN CORPUSCULAR HGB CONC 32.3 g/dL (32.0-36.0); MEAN CORPUSCULAR VOLUME 99.7 fL (81.0-99.0); MEAN PLATELET VOLUME 11.8 fL (7.9-10.8); MONOCYTES # (AUTO) 0.4 10^3/uL (0.0-1.0); MONOCYTES % (AUTO) 9.5 %; NEUTROPHILS # (AUTO) 2.5 10^3/uL (1.5-6.6); NEUTROPHILS % (AUTO) 59.6 %; PLT - PLATELET COUNT 173 10^3/uL (130-450); RED BLOOD COUNT 3.97 10^6/uL (4.20-5.40); RED CELL DISTRIBUTION WIDTH 13.6 % (12.0-15.0); WHITE BLOOD COUNT 4.2 x10^3/uL (4.8-10.8)
[2023-08-31 15:51] LABS: ALBUMIN 4.1 g/dL (3.2-5.5); ALBUMIN/GLOBULIN RATIO 2.1 (1.0-2.2); BILIRUBIN,TOTAL 0.9 mg/dL (0.2-1.0); CALCIUM 9.4 mg/dL (8.5-10.3); CREATININE 0.5 mg/dL (0.6-1.3); TOTAL PROTEIN 6.1 g/dL (6.4-8.9)
[2023-08-31 15:52] LABS: THYROID STIMULATING HORMONE 2.56 uIU/mL (0.34-5.60)
== END 2023-08-31 11:45 | disposition home or self-care (01) ==
LOC: LAB.S 11:44
PROVIDERS: ATTEND Physician Assistant Medical
DX: R53.83 Other fatigue (principal); R53.81 Other malaise; E03.9 Hypothyroidism, unspecified
CPT/HCPCS: 36415; 80053; 84443; 85025

== ENCOUNTER 2023-09-22 08:09 | Outpatient (CLI) | payer MEDICARE, OTHER ==
--- NOTE | 2023-09-22 12:51 | MRI Report ---
PROCEDURE: FOOT WO - RT INDICATIONS: CHONDROCALCINOSIS TECHNIQUE: Noncontrast sagittal T1 spin echo and T2 fast spin echo with fat saturation, long-axis T1 spin echo a nd T2 fast spin echo with fat saturation, short-axis proton density fast spin echo and T2 fast spin e cho with fat saturation through the forefoot. COMPARISON: Right foot radiograph dated 08/31/2023. FINDINGS: Image quality: Excellent. Bones and joints: Moderate midfoot and forefoot joint osteoarthritis is seen with joint space narrowi ng, subchondral sclerosis and marginal osteophyte formation more notably in first MTP joint. Extensiv e marrow edema involving third metatarsal bone is seen with cortical irregularity and periosteal reac tion involving mid to distal shaft of third metatarsal bone consistent with nondisplaced or stress fr acture involving third metatarsal shaft. No other fracture or dislocation is seen. Soft tissues: There is soft tissue swelling surrounding the third metatarsal shaft. Edema within plan tar foot muscles at the metatarsal levels is seen suggestive of muscle strain. Extensor and flexor te ndons are intact. No soft tissue mass or drainable fluid collection. Dorsal midfoot and forefoot soft tissue edema is seen. IMPRESSION: 1. Subacute appearing nondisplaced or stress fracture involving right third metatarsal shaft with jessica rounding soft tissue edema. No other fracture or dislocation. Midfoot and forefoot joint osteoarthrit is. 2. Mild myositis involving plantar foot muscles. Extensor and flexor tendons are intact. Reviewed by: Orlando Mcdaniel MD on 09/22/2023 12:49 PM PST Approved by: Orlando Mcdaniel MD on 09/22/2023 12:49 PM PST Station ID: [id number]
== END 2023-09-22 08:10 | disposition home or self-care (01) ==
LOC: DI 08:09
PROVIDERS: ATTEND Internal Medicine
DX: M11.271 Other chondrocalcinosis, right ankle and foot (principal); M84.377A Stress fracture, right toe(s), initial encounter for fracture; M19.071 Primary osteoarthritis, right ankle and foot; M60.871 Other myositis, right ankle and foot

== ENCOUNTER 2024-04-30 08:00 | Outpatient (CLI) | payer MEDICARE, OTHER ==
--- NOTE | 2024-04-30 19:01 | XRAY Report ---
PROCEDURE: Shoulder 2+V LT INDICATIONS: PAIN IN LEFT SHOULDER TECHNIQUE: 3 views of the shoulder were acquired. COMPARISON: 06/24/2023. FINDINGS: Bones: No fractures or dislocations. Stable severe degenerative arthritis of the glenohumeral joint. No suspicious bony lesions. Visualized ribs appear intact. Soft tissues: No suspicious soft tissue calcifications. The visualized lungs are within normal limi ts. IMPRESSION: Severe degenerative arthritis at the glenohumeral joint is stable. Reviewed by: Faustino Stephen MD on 04/30/2024 6:59 PM PDT Approved by: Faustino Stephen MD on 04/30/2024 6:59 PM PDT Station ID: [id number]
== END 2024-04-30 23:59 | disposition home or self-care (01) ==
LOC: DI.S 08:00
PROVIDERS: ATTEND Registered Nurse
DX: M19.012 Primary osteoarthritis, left shoulder (principal)